=== PATIENT | female | born 1970 | race Caucasian/White ===

== ENCOUNTER 2019-11-24 08:00 | Outpatient (CLI) | payer BC, SELFPAY ==
[2019-11-24 08:28] LABS: Hemoglobin A1C 5.2 % (<5.7)
[2019-11-24 09:26] LABS: Alanine Aminotransferase 42 U/L (14-59); Albumin Level 3.7 g/dL (3.4-5.0); Alkaline Phosphatase 50 U/L (46-116); Anion Gap 11.1 mmol/L (7-16); Aspartate Amino Transferase 20 U/L (15-37); Bilirubin,Total 0.5 mg/dL (0.00-1.00); Blood Urea Nitrogen 17 mg/dL (7-18); Calcium 8.8 mg/dL (8.5-10.1); Carbon Dioxide 30 mmol/L (21-32); Chloride 102 mmol/L (98-108); Cholesterol 127 mg/dL (0-200); Estimated Glomerular Filt Rate > 60; Glucose 84 mg/dL (70-99); HDL Direct 44 mg/dL (40-60); LDL Cholesterol Calculated 68 mg/dL (<130); Osmolality Calculated 288 mOsm/kg (285-295); Potassium 4.1 mmol/L (3.5-5.1); Sodium 139 mmol/L (136-145); Total Protein 6.6 g/dL (6.4-8.2); Triglycerides 73 mg/dL (0-150)
[2019-11-28 11:53] LABS: Hepatitis C Signal to Cutoff 0.01 ratio (<1.00); Hepatitis C Virus Antibody Nonreactive (Nonreactive)
== END 2019-11-24 08:01 | disposition home or self-care (01) ==
PROVIDERS: PCP Family Medicine; Visit Provider Family Medicine
DX: E78.2 Mixed hyperlipidemia (principal); I10 Essential (primary) hypertension; E11.69 Type 2 diabetes mellitus with other specified complication
CPT/HCPCS: 36415; 80053; 80061; 83036

== ENCOUNTER → 2021-01-15 02:57 | Outpatient (CLI) | payer BC, SELFPAY ==
[2021-01-15 19:19] LABS: SARS-CoV-2 RNA PCR Negative
== END ==
PROVIDERS: PCP Family Medicine; Visit Provider Family Medicine
DX: R09.81 Nasal congestion (principal); R51.9 Headache, unspecified; Z20.822 Contact with and (suspected) exposure to COVID-19
CPT/HCPCS: C9803; U0003; U0005

== ENCOUNTER 2021-05-14 09:17 | Outpatient (CLI) | payer BC, SELFPAY ==
--- NOTE | ~2021-05-14 | MM_ITS ---
EXAMINATION: MM screening feli BI w arturo HISTORY: Screening TECHNIQUE: Craniocaudal and mediolateral oblique 3-D tomosynthesis images were obtained and synthetic 2-D images were generated. CAD analysis was submitted and interpreted. COMPARISON: Comparison to multiple prior studies sequentially, with oldest reviewed study dated 10/2014. BREAST PARENCHYMAL COMPOSITION: The breasts are extremely dense, which lowers the sensitivity of mamm ography. FINDINGS: There is no evidence of suspicious mass, calcification, or architectural distortion to sugg est malignancy in either breast. There has been no suspicious interval change. IMPRESSION: 1. No mammographic evidence of malignancy. 2. Recommend routine screening mammography in one year. BI-RADS Category 1: Negative Reviewed, dictated and finalized at location A. INSURANCE AGENT
== END 2021-05-14 09:18 | disposition home or self-care (01) ==
PROVIDERS: PCP Family Medicine; Visit Provider Family Medicine
DX: Z12.31 Encounter for screening mammogram for malignant neoplasm of breast (principal)
CPT/HCPCS: 77063; 77067

== ENCOUNTER 2022-06-29 08:30 | Outpatient (CLI) | payer OTHER, SELFPAY ==
--- NOTE | ~2022-06-29 | MM_ITS ---
EXAMINATION: MM screening feli BI w arturo HISTORY: Screening TECHNIQUE: Craniocaudal and mediolateral oblique 3-D tomosynthesis images were obtained and synthetic 2-D images were generated. CAD analysis was submitted and interpreted. COMPARISON: Comparison to multiple prior studies sequentially, with oldest reviewed study dated 08/29. BREAST PARENCHYMAL COMPOSITION: The breasts are heterogeneously dense, which may obscure small masses FINDINGS: There is no evidence of suspicious mass, calcification, or architectural distortion to sugg est malignancy in either breast. There has been no suspicious interval change. IMPRESSION: 1. No mammographic evidence of malignancy. 2. Recommend routine screening mammography in one year. BI-RADS Category 1: Negative Reviewed, dictated and finalized at location A. TARY SCIENCE TEACHER
== END 2022-06-29 08:31 | disposition home or self-care (01) ==
PROVIDERS: PCP Family Medicine; Visit Provider Family Medicine
DX: Z12.31 Encounter for screening mammogram for malignant neoplasm of breast (principal)
CPT/HCPCS: 77063; 77067

== ENCOUNTER 2023-07-08 14:52 | Outpatient (CLI) | payer BC, SELFPAY ==
--- NOTE | ~2023-07-08 | MM_ITS ---
EXAMINATION: MM screening feli BI w arturo HISTORY: Screening TECHNIQUE: Craniocaudal and mediolateral oblique 3-D tomosynthesis images were obtained and synthetic 2-D images were generated. CAD analysis was submitted and interpreted. COMPARISON: Comparison to multiple prior studies sequentially, with oldest reviewed study dated 03/16. BREAST PARENCHYMAL COMPOSITION: Dense: The breasts are heterogeneously dense, which may obscure small masses FINDINGS: There is no evidence of suspicious mass, calcification, or architectural distortion to sugg est malignancy in either breast. There has been no suspicious interval change. IMPRESSION: 1. No mammographic evidence of malignancy. 2. Recommend routine screening mammography in one year. BI-RADS Category 1: Negative Reviewed, dictated and finalized at location A. ER GRADER
== END 2023-07-08 14:53 | disposition home or self-care (01) ==
LOC: ANHIMG 14:56
PROVIDERS: PCP Family Medicine; Visit Provider Family Medicine
DX: Z12.31 Encounter for screening mammogram for malignant neoplasm of breast (principal)
CPT/HCPCS: 77063; 77067

== ENCOUNTER 2024-01-12 08:36 | Outpatient (CLI) | payer BC, SELFPAY ==
--- NOTE | 2024-01-27 13:45 | WPDHOMESLEEP ---
Sleep Study - Home Unattended Date of Study: 01/12/24 Ordering Provider: Ashlyn Kang MD Interpreting Provider: Izzy Kruger MD Home Sleep Study Type: Watch PAT Height: 1.68 m Weight: 104.326 kg Body Mass Index: 37.1 Neck Circumference (inches): 15 [place]: 18 Reason for Sleep Study Hypersomnolence Sleep History Luli Washington is a 53-year-old woman who has excessive daytime sleepiness. She reports witnessed apneas and extremely loud snoring. She reports choking and gasping at night. She has difficulty breathing when she is sleeping on her back. She has a morning headache and a dry mouth upon awakening. She does not have nocturnal heartburn symptoms. She wakes twice at night to urinate. She has hypertension. Her normal bedtime is midnight, falling asleep within 15 minutes, spending about 5 hours in bed. On weekends, bedtime is 10:00 p.m., falling asleep within 15 minutes. She spends 9 hours in bed so she gets recovery sleep but only feel somewhat restored upon awakening on the her days off work. She has fatigue due to poor sleep, restricted to less than 5 hours per night because of work and family responsibilities during the work week. She has her sleep is also disrupted by severe hot flashes. She does not feel rested upon awakening, she has an urge to fall asleep during the day including while driving. She works rotating shifts. She clenches or grinds her teeth at night but does not report any uncomfortable feelings in her legs or kicking at night. When she awakens at night she does not have difficulty returning to sleep. She is not anxious about her sleep. Habits: Tobacco : no Caffeine: no Alcohol: No PMFSH Past Medical History Medical History Hypertension Mitral valve disease Vaginal delivery x 2 Surgical History Surgical History History of appendectomy History of hysterectomy, supracervical Hx of hemorrhoidectomy [place] teeth removed Family History Family History Father Family history of lung cancer Colon polyp Grandparent Diabetes mellitus Cerebrovascular accident Carcinoma of colon Mother Family history of elevated blood lipids Family history of malignant neoplasm of uterus Family history of malignant neoplasm of ovary Other Hypertension Social History Social History Smoking status: Never smoker Second hand tobacco smoke exposure: No Alcohol intake: never Substance use: never Substance use type: does not use Lack of Transportation: No Lack of Food: Never True Current Housing: I Have Housing Concerned About Future Housing: No Difficulty Paying Gas/Electric Bills: No Difficulty Paying for Meds: No Currently Unemployed: No Education: Associate Degree Difficulty w/ Childcare or Family Care: No Living arrangements: with family Occupation/Education: occupation Gender identity (if verbalized by the patient): Female Medications Home Medications Medication Instructions Recorded Confirmed Type calcium carbonate (Calcium 500) 500 mg PO DAILY 11/06/19 11/09/23 History multivitamin 1 tablet PO DAILY 04/18/20 11/09/23 History vitamin B complex (B 1 tablet PO DAILY 11/04/22 11/09/23 History Complex-Vitamin B12 tablet) omega-3 acid ethyl esters 1 gram See Rx Instructions .Route 01/04/23 11/09/23 Rx capsule .COMPLEX #360 caps hydrochlorothiazide 12.5 mg capsule See Rx Instructions .Route 03/10/23 11/09/23 Rx .COMPLEX #90 caps losartan 50 mg tablet 50 mg PO DAILY #90 tabs 11/07/23 11/09/23 Rx naltrexone 50 mg tablet 25 mg PO DAILY #90 tabs 11/09/23 11/09/23 Rx metformin 500 mg tablet,extended See Rx Instructions PO .COMPLEX 01/03/24 Rx release 24 hr #180 tabs Sleep Procedure The sleep study was comple
[2024-01-27 14:13] VITALS: BMI 37.1
== END 2024-01-24 13:55 | disposition home or self-care (01) ==
LOC: ANHCSM 08:36
PROVIDERS: PCP Family Medicine; Visit Provider Family Medicine
DX: G47.30 Sleep apnea, unspecified (principal); G47.33 Obstructive sleep apnea (adult) (pediatric); G47.31 Primary central sleep apnea
CPT/HCPCS: 95800

== ENCOUNTER 2024-04-04 10:49 | Outpatient (CLI) | payer BC, SELFPAY ==
--- NOTE | 2024-04-24 09:46 | P.SLEEP_ITS ---
Sleep Study Date of Study: 04/04/24 Ordering Provider: Ashlyn Kang MD Interpreting Physician: Sarina Scott DO Sleep Study Type: CPAP Titration Height: 1.65 m Weight: 103.873 kg Body Mass Index: 38.1 Neck Circumference (inches): 15 [place]: 18 Reason for Sleep Study WatchPAT home sleep test on 01/12/2024 showed overall AHI of 35.7 with VANESSA of 16.3. Sleep History Luli Washington is a 53-year-old woman who has excessive daytime sleepiness. She reports witnessed apneas and extremely loud snoring. She reports choking and gasping at night. She has difficulty breathing when she is sleeping on her back. She has a morning headache and a dry mouth upon awakening. She does not have nocturnal heartburn symptoms. She wakes twice at night to urinate. She has hypertension. Her normal bedtime is midnight, falling asleep within 15 minutes, spending about 5 hours in bed. On weekends, bedtime is 10:00 p.m., falling asleep within 15 minutes. She spends 9 hours in bed so she gets recovery sleep but only feel somewhat restored upon awakening on the her days off work. She has fatigue due to poor sleep, restricted to less than 5 hours per night because of work and family responsibilities during the work week. She has her sleep is also disrupted by severe hot flashes. She does not feel rested upon awakening, she has an urge to fall asleep during the day including while driving. She works rotating shifts. She clenches or grinds her teeth at night but does not report any uncomfortable feelings in her legs or kicking at night. When she awakens at night she does not have difficulty returning to sleep. She is not anxious about her sleep. Habits: Tobacco : no Caffeine: no Alcohol: No PMFSH Past Medical History Medical History Mitral valve disease Hypertension Vaginal delivery x 2 Surgical History Surgical History Hx of hemorrhoidectomy History of hysterectomy, supracervical History of appendectomy [place] teeth removed Family History Family History Father Family history of lung cancer Colon polyp Grandparent Diabetes mellitus Cerebrovascular accident Carcinoma of colon Mother Family history of elevated blood lipids Family history of malignant neoplasm of uterus Family history of malignant neoplasm of ovary Other Hypertension Social History Social History Smoking status: Never smoker Second hand tobacco smoke exposure: No Alcohol intake: never Substance use: never Substance use type: does not use Lack of Transportation: No Lack of Food: Never True Current Housing: I Have Housing Concerned About Future Housing: No Difficulty Paying Gas/Electric Bills: No Difficulty Paying for Meds: No Currently Unemployed: No Education: Associate Degree Difficulty w/ Childcare or Family Care: No Living arrangements: with family Occupation/Education: occupation Gender identity (if verbalized by the patient): Female Medications Home Medications ?Medication ?Instructions ?Recorded ?Confirmed ?Type calcium carbonate (Calcium 500) 500 mg PO DAILY 11/06/19 11/09/23 History multivitamin 1 tablet PO DAILY 04/18/20 11/09/23 History vitamin B complex (B 1 tablet PO DAILY 11/04/22 11/09/23 History Complex-Vitamin B12 tablet) omega-3 acid ethyl esters 1 gram See Rx Instructions .Route 01/04/23 11/09/23 Rx capsule .COMPLEX #360 caps losartan 50 mg tablet 50 mg PO DAILY #90 tabs 11/07/23 11/09/23 Rx naltrexone 50 mg tablet 25 mg (1/2 x 50 mg) PO DAILY #90 11/09/23 11/09/23 Rx tabs amoxicillin 875 mg-potassium 1 tablet PO BID #14 tabs 02/02/24 Rx clavulanate 125 mg tablet metformin 500 mg tablet,extended 1,000 mg (2 x 500 mg) PO BID #360 03/02/24 Rx release 24 hr tabs hydrochlorothiazide 12.5 mg capsule See Rx Instructions .Route 03/05/24 Rx .COMPLEX #90 caps azithromycin 250 mg tablet See Rx Instructions PO .COMPLEX #6 03/29/24 Rx tabs Sleep Procedure A full night CPAP Titration using the [employer] SleepHojoki multi-channel system recorded the standard physiologic parameters including EEG, EOG, submentalis EMG, anterior tibialis EMG, EKG, body position, nasal and oral airflow using nasal pressure sensor and thermistor.? Respiratory parameters of chest and abdominal movements were recorded with Respiratory Inductance Plethysmography belts. Oxygen saturation was recorded by pulse oximetry. Video monitoring was also performed. Sleep stages, periodic limb movements, and EEG arousals were scored in 30 second epochs according to the criteria of the AASM Scoring Manual. The Apnea-Hypopnea Index was calculated using [facility] guidelines for definition of hypopnea with 4% O2 desaturations while scoring respiratory events. Sleep Architecture The total recording time was 526.5 minutes.? The total sleep time was 385.5 minutes. Sleep latency was 15.3 minutes. REM latency was 105.5 minutes. Sleep efficiency was 73.2%. The patient had 42 awakenings for an awakening index of 6.5. Wake after Sleep Onset time was 125.5 minutes. The patient spent 25.5 minutes, 6.6% of total sleep time in Stage N1. The patient spent 189.0 minutes, 49.0% in Stage N2. The patient spent 83.0 minutes, 21.5% in Stage N3. The patient spent 88.0 minutes, 22.8% in Stage REM. Respiratory Analysis The patient had 7 hypopneas, 2 obstructive apneas and 2 central apneas for an overall Apnea Hypopnea Index of 1.7 events per hour. The REM Apnea Hypopnea Index was 3.4. The NREM Apnea Hypopnea Index was 1.2. The patient had a Central Apnea Hypopnea Index of 0.3. There was no evidence of García-Zuñiga Respirations. The patient was started on CPAP 7 cm H2O and titrated to CPAP 13 cm H2O due to hypopneas and central apneas. The patient was able to fall asleep starting on CPAP 7 cm H2O. The patient was able to achieve REM sleep starting on CPAP 7 cm H2O. The patient was able to achieve a residual AHI less than 5 with both NREM and REM sleep in the supine position on the final two pressures. On CPAP 12 cm H2O, the patient spent 40 minutes in NREM and 23.5 minutes in REM with 2 central apneas and 1 hypopnea, resulting in an AHI of 2.8. On CPAP 13 cm H2O, the patient spent 52.5 minutes in NREM and 37.5 minutes in REM with 1 obstructive apnea, resulting in an AHI of 0.7. The patient had a sleep efficiency of 89.4% on 12 cm H2O and 91.8% on 13 cm H2O. Arousals There were 82 total arousals for an arousal index of 12.8. There were 67 spontaneous arousals for an index of 10.4. ?There were 6 arousals due to respiratory events for an index of 0.9. There were 2 arousals due to periodic limb movements for an index of 0.3.? There were 7 arousals due to isolated limb movements for an index of 1.1. Periodic Limb Movements The patient had 30 isolated limb movements with an index of 4.7. The patient had 21 periodic limb movements with index of 3.3. Patient had a total of 51 limb movements with a total limb movement index of 7.9. Oximetry Data The patient had an average oxygen saturation of 95.0% in sleep with a minimum oxygen saturation of 89.0% and a maximum oxygen saturation of 100.0%. The patient had 8 oxygen desaturations that were 4% or greater resulting in an Oxygen Desaturation Index of 1.2.? The patient spent 0.1 minutes of total sleep time with an oxygen saturation below 88%. Snoring Profile Mild to moderate snoring was present throughout the study. The snoring resolved once the patient was titrated to CPAP 12 cm H2O. Cardiac Profile The EKG showed normal sinus rhythm. The patient had an average pulse rate of 64.4 bpm with a minimum pulse rate of 53.0 bpm and a maximum pulse rate of 82.0 bpm. ? EEG Profile No signs of seizure activity seen. Assessment and Plan Assessment and Plan (1) Obstructive sleep apnea: Code(s): G47.33 - Obstructive sleep apnea (adult) (pediatric) Status: Acute Assessment and Plan: The patient was started on CPAP 7 cm H2O and titrated to CPAP 13 cm H2O due to hypopneas and central apneas. The patient's sleep apnea resolved with high sleep efficiency on multiple pressures. I recommend that the patient be prescribed CPAP 13 cm H2O, size medium Resmed AirTouch F20 FFM, CPAP filters/tubing and heated humidity. This should be used with all episodes of sleep.? Compliance should be reviewed within 31-90 days of starting therapy for usage greater than 4 hours per night greater than 70% of the nights. The patient should be asked about symptoms such as?excessive daytime sleepiness, quality of sleep, decreased nocturia, increased?mental functioning such as memory, mood, and concentration. Data The data obtained during this sleep study is adequate for interpretation. Certification This sleep study has been reviewed by a board certified sleep medicine physician.
[2024-04-24 09:51] VITALS: BMI 38.1
== END 2024-04-05 07:13 | disposition home or self-care (01) ==
LOC: ANHCSM 11:30
PROVIDERS: PCP Family Medicine; Visit Provider Family Medicine
DX: G47.31 Primary central sleep apnea (principal); G47.33 Obstructive sleep apnea (adult) (pediatric)
CPT/HCPCS: 95811